=== PATIENT | female | born 1945 | race African-American/Black ===

== ENCOUNTER 2021-05-21 21:57 | Inpatient (IN) | payer OTHER ==
[~2021-05-21] VITALS: Ht 162.6 cm; Wt 71.2 kg
[2021-05-21 21:57] VITALS: BP 153/87
[2021-05-22] VITALS (7 sets, daily range): BP systolic 131–169; BP diastolic 77–101
[2021-05-22 01:42] LABS: HEMATOCRIT 35.7 % (37.0-47.0); HEMOGLOBIN 11.8 gm/dL (12.0-15.0); MCH 27.6 pg (26.0-34.0); MCV 83.6 fL (80.0-100.0); RBC 4.26 mil/uL (4.20-5.00); RDW 14.4 % (10.5-14.5); WBC 5.9 thou/uL (4.0-11.0)
[2021-05-22 01:46] LABS: CALCIUM 8.6 mg/dL (8.5-10.1); CREATININE 1.2 mg/dL (0.6-1.0); POTASSIUM 3.6 mmol/L (3.5-5.1)
--- NOTE | 2021-05-22 05:29 | NUR ---
PT ARRIVED TO THE UNIT AT AROUND 0045 HRS. DX WITH LEFT HIP FRACTURE. GARDNER PLACED TO D/D. SCDS IN PLACE. MORPHINE GIVEN FOR PAIN WITH RELIEF. PT IS CALM AND COOPERATIVE, VSS.NPO FOR SURGERY.CALL LIGHT WITHIN REACH.
--- NOTE | 2021-05-22 08:24 | NUR ---
ORDERS RECEIVED FOR PT EVAL AND TREAT. Pt W/ L FEMORAL NECK FRACTURE. NPO FOR PLANNED L HIP HEMIARTHROPLASTY. WILL PLACE Pt ON HOLD UNTIL AFTER SURGICAL INTERVENTION AND WILL NEED NEW PT ORDERS S/P SURGERY TO INITIATE PT SERVICES.
--- NOTE | 2021-05-22 16:23 | NUR ---
PT ASSESSED AT START OF SHIFT. ON BEDREST TODAY AND WILL START THERAPY IN AM. NPO FOR HIP REPAIR THIS AM. RETURNED AND NOT HAVING ANY PAIN AT PRESENT. VSS. TAKING FLUIDS BUT WANTING TO SLEEP DIDN'T SLEEP MUCH LAST NOC. LT HIP DSNG DRY W/ ICE PACK. SCD'S IN PLACE. REPOSITIONED EVERY 2HRS.
--- NOTE | 2021-05-23 01:33 | NUR ---
PT OBSERVED LYING ON HER BED WATCHING TV AT SHIFT CHANGE.DRSG TO HER L HIP C/D/I.PT REQUESTED FOR AND RECEIVED TYLENOL FOR PAIN.GARDNER CATH TO DD.PT RESTING COMFORTABLY ON HER BED.CALL LIGHT WITHIN REACH.
[2021-05-23 03:11] LABS: HEMATOCRIT 27.6 % (37.0-47.0); MCHC 33.3 g/dL (28.0-37.0); RBC 3.28 mil/uL (4.20-5.00); WBC 10.1 thou/uL (4.0-11.0)
[2021-05-23 03:20] LABS: HEMOGLOBIN 9.2 gm/dL (12.0-15.0)
[2021-05-23 03:57] LABS: ALBUMIN 2.8 g/dL (3.4-5.0); CALCIUM 7.7 mg/dL (8.5-10.1); PHOSPHORUS 3.9 mg/dL (2.5-4.9); POTASSIUM 4.5 mmol/L (3.5-5.1)
[2021-05-23 04:22] VITALS: BP 116/69
[2021-05-23 07:00] VITALS: BP 123/68
--- NOTE | 2021-05-23 07:11 | NUR ---
RECEIVED OT EVALUATION ORDER, PATIENT WITH A FEMORAL NECK FRACTURE. PATIENT HAD SURGERY FOR A HEMIARTHROPLASTY YESTERDAY. NEED POST-OP ORDERS, WILL PLACE PATIENT ON HOLD UNTIL THEY ARE RECEIVED.
--- NOTE | 2021-05-23 10:19 | NUR ---
Assumed care of pt at 0700. Pt a&ox4. Dressing c/d/i. Pain controlled with prn pain medications. IVF infusing. Up to the chair with physical therapy. RA. Call light within reach. Family at bedside. Fall precautions in place. Will continue to monitor.
--- NOTE | 2021-05-23 12:40 | O ---
[facility] [place] [address] OPERATIVE REPORT Name: ANJUM TAYLOR Room #: 441-P ADM IN M.R.#: [id number] Admission: 05/21/21 Attend Phys: Vanessa Foote MD Discharge: Date of : 49 Report #: [id number] THIS REPORT FOR: cc: NO FAMILY PHYSICIAN or PCP NO FAMILY PHYSICIAN or PCP Marc Maciel MD ~ DATE OF SERVICE: 05/22/2021 PREOPERATIVE DIAGNOSIS: Left femoral neck fracture. POSTOPERATIVE DIAGNOSIS: Left femoral neck fracture. PROCEDURE: Left hip hemiarthroplasty. SURGEON: Marc Maciel MD ICT SUPPORT ENGINEER: None. ANESTHESIA: General. ESTIMATED BLOOD LOSS: 200 mL. DRAINS: No drains. TOURNIQUETS: No tourniquets. COMPLICATIONS: No complications. DESCRIPTION OF PROCEDURE: The patient brought to the operating room where she was placed under general anesthesia. Once under adequate general anesthesia, she was placed into a lateral decubitus position on the operative table. The patient's left hip was then prepped and draped in a sterile manner. The extremity was prepped and draped in a sterile manner. A 14 cm incision overlying the tip of the greater trochanter was then made. This was dissected down through the soft tissue to the tip of the greater trochanter. The tensor fascia was incised exposing the posterior aspect of the hip. A posterior approach was achieved, elevating the piriformis along with the short external elevators, exposing the hip joint. Any hematoma was evacuated from the joint and subsequently a Lerner elevator was used along with a corkscrew extractor was used to remove the femoral head. The femoral neck was then cut to length with an oscillating saw. The size 45 femoral head component was then chosen and did appear to fit well. Therefore, we proceeded with preparing the femoral canal by opening with an opening reamer and then subsequently reaming to a size 8 cemented stem and this was then broached for the same. It did appear to be stable once this was complete. The trial reduction did note excellent stability once complete. The femur was then irrigated copiously and prepared for [facility] [address] [place] [address] OPERATIVE REPORT Name: ANJUM TAYLOR Room #: 441-P [facility] IN M.R.#: [id number] Admission: 05/21/21 Attend Phys: Vanessa Foote MD Discharge: Date of : 49 Report #: [id number] cementation. Bone cement was then placed and a size 8 stem along with a +0 neck and a 45 mm head was then placed. This did appear to be stable once complete. The wound was then irrigated copiously and closed with #2 FiberWire in the capsular layer, #5 FiberWire to repair the piriformis back to its fossa, and the wound was then once again irrigated copiously and closed with #1 Vicryl in the tensor fascia, 2-0 Vicryl in subcutaneous tissues and kyler were used for the skin. The wound was dressed with Xeroform, 4 x 4's, and a sterile soft compressive dressing was placed. There were no complications from the procedure. The patient tolerated the procedure well and was to the recovery room without incident. <ELECTRONICALLY SIGNED> By: Marc Maciel MD 05/23/21 1240 [id number] 1200 Marc Maciel MD /nt
[2021-05-23 16:00] VITALS: BP 128/68
--- NOTE | 2021-05-23 16:00 | NUR ---
INITIAL ASSESSMENT: RAMYA reviewed chart and spoke with nursing and attending physician. Pt was admitted from home after a fall. Pt is POD #1 left JESSENIA. RAMYA met with pt and son at bedside. Introduced role of SW. Pt is alert/orientated x 4. Pt reports she lives at home with her son. They reside in [place], [place]. Plan is for pt to return to their home in [place] upon discharge. Prior to admission, pt was independent with ADLs. No use of DME. Pt does have a walker from a previous hip surgery. Pt has not used HH services in the past. No hx of post-acute placement. SW discussed discharge needs. Awaiting PT follow up. Pt is agreeable with HH referral. No preference of HH provider. RAMYA confirmed pt's home address and phone number. RAMYA contacted [facility] liaison, who states they no longer go to [place], [place]. RAMYA spoke with Claudia with intake at [facility], who states they do go to [place] and take pt's insurance. RAMYA faxed referral for review. RAMYA is following to assist as needed with discharge planning.
[2021-05-23 20:20] VITALS: BP 116/66
[2021-05-24 03:21] LABS: HEMATOCRIT 23.6 % (37.0-47.0); HEMOGLOBIN 7.9 gm/dL (12.0-15.0); MCH 27.9 pg (26.0-34.0); MCHC 33.4 g/dL (28.0-37.0); MCV 83.6 fL (80.0-100.0); RBC 2.82 mil/uL (4.20-5.00); RDW 13.8 % (10.5-14.5); WBC 8.9 thou/uL (4.0-11.0)
--- NOTE | 2021-05-24 03:51 | NUR ---
ASSUMED PT CARE AT 1900.PT HAD A TEMP OF 100.3 AT START OF SHIFT,TYLENOL ADMINISTERED,EFFECTIVE.DRSG TO HER L HIP C/D/I.ICE PACK TO HER HIP.JJ CATHIN PLACE TO DD.IVF INFUSING ORDERED.PT ABLE TO MAKE HER NEEDS KNOWN.CALL LIGHT WITHIN REACH.
[2021-05-24 08:45] VITALS: BP 123/69
--- NOTE | 2021-05-24 10:36 | NUR ---
ASSUMED PT CARE THIS AM. PT IS ALERT & ORIENTED X4. PT HAS IV SITE ON L AC RUNNING NS @100ML/HR. PT IS UP WITH ASSIST WITH WALKER AND GAITBELT. PT HAS GARDNER CATH IN PLACE. PT IS ACCUCHECK ACHS. GIVEN PAIN MEDICATION PRIOR WORKING WITH PHYSICAL THERAPY. PT WORKED WITH PHYSICAL THERAPY THIS AM. PT TOLERATED DIET AND MEDICATION WELL. NO C/O OF NAUSEA AND VOMITING. WILL CONTINUE TO MONITOR PT. FOLLOW POC.
[2021-05-24 15:17] VITALS: BP 123/60
--- NOTE | 2021-05-24 16:01 | NUR ---
Pt now interested in SNF stay vs going home with hh. Discussed with therapy and the care team. SNF options reveiwed with the pt at bedside. Referral called and faxed to [facility]. They will have a bed tomorrow and can do an onsite visit to answering any questions the pt may have in the am. Possible dc to snf tomorrow.
[2021-05-24 19:03] VITALS: BP 127/69
[2021-05-25 02:06] LABS: GLYCOHEMOGLOBIN (HGB A1C) 5.6 % (4.8-5.6)
--- NOTE | 2021-05-25 02:57 | NUR ---
ASSUMED CARE OF PT AT 1900. BEDSIDE REPORT RECIEVED. NATHAN ASSESSMENT COMPLETE. NO C/O PAIN FROM PT AT THIS TIME. PT FEBRILE AT 101.1, PRN TYLENOL ADMINISTERED. LLE IS MILDY SWOLLEN. DRESSING TO L HIP CDI. ASSISTED WITH REPOSITIONING. GARDNER CARE DONE. LFA PIV CDI, PATENT. PILLOWS PLACED BETWEEN LEGS D/T ABUCTOR CAUSING IRRITATION/RASH. ALL NEEDS MET. CALL LIGHT IN REACH.
[2021-05-25 03:57] VITALS: BP 116/65
[2021-05-25 08:09] VITALS: BP 120/61
[2021-05-25 08:18] VITALS: BP 120/61
[2021-05-25] MEDS ORDERED: AMLODIPINE BESY10 MG PO (09:17)
[2021-05-25] MEDS ORDERED: METFORMIN HCL500 MG PO (09:18)
[2021-05-25] MEDS ORDERED: FOLIC ACID1 MG PO (09:18)
[2021-05-25] MEDS ORDERED: TRAMADOL 50 MG50 MG PO (09:19)
--- NOTE | 2021-05-25 10:43 | NUR ---
ASSUMED PT CARE THIS AM. PT IS ALERT & ORIENTED X4. PT IS UP WITH ASSIST X1 WITH GAITBELT AND WALKER. PT HAS IV SITE ON LAC. REMOVED GARDNER THIS AM. PT IS ACCUCHECK ACHS. VVS. PT IS ON ROOM AIR. NO C/O OF NAUSEA AND VOMITING. WILL PROBABLY DC TO [facility] TODAY. WILL CONTINUE TO MONITOR PT. FOLLOW POC.
--- NOTE | 2021-05-25 11:11 | NUR ---
Pt accepted for admission to SNF at [facility] today. Dc orders faxed along with a 124c. Their liason has visited with the pt at bedside this am and she is agreeable. Pt has had both [employer] vaccines. W/c van this afternoon per [facility]. Chart copy is in progress and nursing to call report. Pt to updated her family members.
== END 2021-05-25 15:24 | DRG 521 ==
LOC: ER 21:57 → EROBS 23:30 → 4S 23:30 → EROBS 23:31 → 4S 05-22 01:11
PROVIDERS: Hospitalist; Nurse Practitioner Family; Orthopaedic Surgery Foot and Ankle Surgery; ADMIT Internal Medicine; ATTEND Internal Medicine
PROC: 0SRS0J9 Replacement of Left Hip Joint, Femoral Surface with Synthetic Substitute, Cemented, Open Approach (ICD-10-PCS; principal; 2021-05-22)
DX: S72.002A Fracture of unspecified part of neck of left femur, initial encounter for closed fracture (principal); E43 Unspecified severe protein-calorie malnutrition; D62 Acute posthemorrhagic anemia; Z68.26 Body mass index [BMI] 26.0-26.9, adult; I10 Essential (primary) hypertension; F17.210 Nicotine dependence, cigarettes, uncomplicated; D56.9 Thalassemia, unspecified; Z96.641 Presence of right artificial hip joint; F32.9 Major depressive disorder, single episode, unspecified; F10.20 Alcohol dependence, uncomplicated; M81.0 Age-related osteoporosis without current pathological fracture; E89.0 Postprocedural hypothyroidism; T46.5X6A Underdosing of other antihypertensive drugs, initial encounter; W01.0XXA Fall on same level from slipping, tripping and stumbling without subsequent striking against object, initial encounter; E11.9 Type 2 diabetes mellitus without complications; R32 Unspecified urinary incontinence; R53.81 Other malaise; Z20.822 Contact with and (suspected) exposure to COVID-19; Z86.718 Personal history of other venous thrombosis and embolism; Y93.89 Activity, other specified; Y92.89 Other specified places as the place of occurrence of the external cause; Z80.3 Family history of malignant neoplasm of breast; Y99.8 Other external cause status; Z91.041 Radiographic dye allergy status; Z98.84 Bariatric surgery status; Z80.42 Family history of malignant neoplasm of prostate
CPT/HCPCS: 10195; 50101; 50382; 50414; 51057; 51130; 51225; 51226; 51412; 53000; 56525; 56530; 56531; 57095; 57117; 62110; 62900; 70005